=== PATIENT | female | born 1955 | race Caucasian/White ===

== ENCOUNTER 2018-08-15 07:06 | Day surgery (SDC) | payer BC ==
[2018-08-15] VITALS (12 sets, daily range): BP systolic 95–113; BP diastolic 44–64
[~2018-08-15] VITALS: Ht 162.6 cm; Wt 54.1 kg
[~2018-08-15 07:06] MED LIST: LIDOcaine 1% 30ml preserv. free vial SQ STA
[2018-08-15] MEDS ORDERED: OMEP40CA37 PO (07:28)
[2018-08-15] MEDS ORDERED: normal saline 1000ml 1,000 ML IV SCH (07:50)
[2018-08-15] MEDS ORDERED: MIDAZolam 5mg/ml 2ml vial IV ONE (08:25)
[2018-08-15] MEDS ORDERED: fentaNYL/PF 50MCG/1 ML 2ML syringe IV ONE (08:25)
[2018-08-15 08:30] LABS: BASOPHILS % (AUTO) 0.7 % (0-1); EOSINOPHILS # (AUTO) 0.2 X10'3 (0-0.9); EOSINOPHILS % (AUTO) 3.3 % (0-6); HEMATOCRIT 38.3 % (35.0-45.0); HEMOGLOBIN 12.9 g/dl (12.0-16.0); LYMPHOCYTES # (AUTO) 1.7 X10'3 (1.1-4.8); LYMPHOCYTES % (AUTO) 35.8 % (21-51); MEAN CORPUSCULAR HEMOGLOBIN 31.9 PG (27.0-31.0); MEAN CORPUSCULAR HGB CONC 33.7 % (33.0-36.5); MEAN CORPUSCULAR VOLUME 94.7 FL (78-98); MEAN PLATELET VOLUME 7.9 FL (7.4-10.4); MONOCYTES # (AUTO) 0.3 X10'3 (0-0.9); MONOCYTES % (AUTO) 6.8 % (2-12); NEUTROPHILS # (AUTO) 2.6 X10'3 (1.8-7.7); NEUTROPHILS % (AUTO) 53.4 % (42-75); PLATELET COUNT 264 X10'3 (140-440); RED BLOOD COUNT 4.05 X10'6 (4.20-5.60); RED CELL DISTRIBUTION WIDTH 13.2 % (11.5-14.5); WHITE BLOOD COUNT 4.9 X10'3 (4.5-11.0)
[2018-08-15 08:43] LABS: ALBUMIN 3.8 G/DL (3.4-5.0); ANION GAP 8 (8-16); BLOOD UREA NITROGEN 17 MG/DL (7-18); BUN/CREATININE RATIO 25.4 (6.6-38.0); CHLORIDE 105 MMOL/L (99-107); CREATININE 0.67 MG/DL (0.40-0.90); GLUCOSE 89 MG/DL (70-104); POTASSIUM 3.8 MMOL/L (3.5-5.1); SODIUM 142 MMOL/L (135-145); eGFR 89 ML/MIN
[2018-08-15 08:48] LABS: PROTHROMBIN TIME 10.1 SECONDS (9.0-12.0)
[2018-08-15] MEDS ORDERED: HYDROcodone/acetaminophen 5mg/325mg tablet PO PRN ×2 (09:45)
== END 2018-08-15 11:35 | disposition home or self-care (01) ==
LOC: SSTAY O 07:06
PROVIDERS: ATTEND Radiology Vascular & Interventional Radiology
DX: K73.8 Other chronic hepatitis, not elsewhere classified (principal); E88.01 Alpha-1-antitrypsin deficiency; M81.0 Age-related osteoporosis without current pathological fracture; J45.998 Other asthma; M06.9 Rheumatoid arthritis, unspecified; F32.9 Major depressive disorder, single episode, unspecified; Z87.09 Personal history of other diseases of the respiratory system; Z87.891 Personal history of nicotine dependence; Z87.19 Personal history of other diseases of the digestive system; Z85.09 Personal history of malignant neoplasm of other digestive organs; Z90.710 Acquired absence of both cervix and uterus; Z98.890 Other specified postprocedural states; Z79.899 Other long term (current) drug therapy; Z88.8 Allergy status to other drugs, medicaments and biological substances
CPT/HCPCS: 36415; 47000; 76942; 80048; 85025; 85610; J2250; J3010; J3490; J7030

== ENCOUNTER 2024-06-21 12:29 | Outpatient (CLI) | payer MEDICARE ==
[~2024-06-21 12:29] MED LIST changes: -LIDOcaine 1% 30ml preserv. free vial SQ STA; +OMEP40CA21 PO
== END 2024-06-21 23:59 | disposition home or self-care (01) ==
LOC: MRI02 12:29
PROVIDERS: ATTEND Physician Assistant Surgical
DX: M43.8X4 Other specified deforming dorsopathies, thoracic region (principal); M54.6 Pain in thoracic spine; M79.10 Myalgia, unspecified site
CPT/HCPCS: 72146